=== PATIENT | male | born 1985 ===

== ENCOUNTER 2022-02-21 16:59 | Emergency (ER) | payer OTHER ==
[~2022-02-21] VITALS: Ht 162.6 cm; Wt 72.6 kg
[2022-02-21] MEDS ORDERED: TORADOL60 MG (17:20)
[2022-02-21] MEDS ORDERED: NEURONTIN300 MG (17:20)
[2022-02-21] MEDS ORDERED: ULTRAM50 MG (17:20)
[2022-02-21] MEDS ORDERED: HUMULIN R100 UNIT/1 (17:21)
[2022-02-21] MEDS ORDERED: FOLIC ACID0.4 MG (17:21)
[2022-02-21] MEDS ORDERED: LANTUS SOL100 UNIT/1 (17:21)
[2022-02-21] MEDS ORDERED: CEFPODOXIME PR200 MG PO (21:06)
== END 2022-02-21 23:21 | disposition home or self-care (01) ==
LOC: ER 16:59
DX: N39.0 Urinary tract infection, site not specified (principal); B96.89 Other specified bacterial agents as the cause of diseases classified elsewhere; E11.65 Type 2 diabetes mellitus with hyperglycemia; Z79.4 Long term (current) use of insulin